=== PATIENT | male | born 1975 | race Caucasian/White ===

== ENCOUNTER 2017-12-30 02:08 | Emergency (ER) | payer BC ==
[~2017-12-30] VITALS: Ht 185.4 cm; Wt 108.0 kg
[2017-12-30] MEDS ORDERED: IBUP-1985 PO (02:49)
[2017-12-30 02:58] VITALS: BP 112/71
== END 2017-12-30 03:02 | disposition home or self-care (01) ==
LOC: ER 02:08
DX: S53.402A Unspecified sprain of left elbow, initial encounter (principal); X50.1XXA Overexertion from prolonged static or awkward postures, initial encounter; Y93.89 Activity, other specified; Y92.89 Other specified places as the place of occurrence of the external cause; Y99.8 Other external cause status
CPT/HCPCS: 73080; 99284